=== PATIENT | female | born 1960 | race Caucasian/White ===

== ENCOUNTER 2017-11-14 16:57 | Emergency (ER) | payer BC ==
[2017-11-14 18:46] VITALS: BP 137/86
--- NOTE | 2017-11-14 20:20 | UC ---
Sandi Owens Gabriel, scribed for Cristiano Parr MD on 11/14/17 at 1932 . FLU HPI - HPI Summary HPI Summary: This patient is a 57 year old F presenting to [facility] with a chief complaint of a flu like illness since 11-13-17. The patient rates the pain 6/10 in severity. Patient reports headache, chills, sore throat, fatigue, and myalgia. Patient denies n/v/d and fever. Exposure to flu positive persons. Pt called PCP this morning and was told to come here because she is in the 48 hr window and would like to be tested - History of Current Complaint Chief Complaint: UCRespiratory Stated Complaint: sore throat Time Seen by Provider: 11/14/17 19:18 Hx Obtained From: Patient Onset/Duration: Lasting Days - 1, Still Present Severity Currently: Moderate Severity Initially: Moderate Pain Intensity: 6 Pain Scale Used: 0-10 Numeric Associated Signs & Symptoms: Positive: Myalgia, Headache. Negative: Fever, Vomiting, Diarrhea - Allergy/Home Medications Allergies/Adverse Reactions: Allergies Allergy/AdvReac Type Severity Reaction Status Date / Time No Known Allergies Allergy Verified 11/14/17 18:39 Home Medications: Home Medications Levothyroxine TAB* [Synthroid TAB*] 75 mcg PO 0800 11/14/17 [History Confirmed 11/14/17] PMH/Surg Hx/FS Hx/Imm Hx Endocrine History: Hypothyroidism Other History Of: Negative For: HIV, Hepatitis B - Surgical History Surgical History: Yes Surgery Procedure, Year, and Place: Kael Tumor L Ovary Removed - Family History Known Family History: Positive: Other - lung cancer Negative: Cardiac Disease, Hypertension, Renal Disease, Respiratory Disease, Seizure Disorder - Social History Alcohol Use: Rare Substance Use Type: None Smoking Status (MU): Never Smoked Tobacco Review of Systems Constitutional: Chills, Fatigue ENT: Sore Throat Musculoskeletal: Myalgia Neurological: Headache All Other Systems Reviewed And Are Negative: Yes Physical Exam Triage Information Reviewed: Yes Vital Signs: Initial Vital Signs Temp 98.9 F 11/14/17 18:41 Pulse 73 11/14/17 18:41 Resp 18 11/14/17 18:41 BP 137/86 11/14/17 18:41 Pulse Ox 100 11/14/17 18:41 Vital Signs Reviewed: Yes - Additional Comments General: well-appearing, no pain distress Skin: warm, color reflects adequate perfusion, dry Head: normal Eyes: EOMI, BERTHA ENT: Mild posterior pharynx erythema Neck: supple, nontender Respiratory: CTA, breath sounds present Cardiovascular: RRR Abdomen: soft, nontender Bowel: present Musculoskeletal: normal, strength/ROM intact Neurological: normal, sensory/motor intact, A&O x3 Psychological: affect/mood appropriate Flu Course/Dx - Course Course Of Treatment: Medications reviewed. BP noted and advised to follow up with PCP - Differential Dx/Diagnosis Provider Diagnoses: FLU LIKE ILLNESS. Elevated blood pressure without history of hypertension. Discharge - Discharge Plan Condition: Stable Disposition: HOME Patient Education Materials: Viral Syndrome (ED) Referrals: Linsey Salcedo MD [Primary Care Provider] - Additional Instructions: FOLLOW UP WITH YOUR DOCTOR. GET RECHECKED FOR ANY WORSENING OF YOUR CONDITION OR QUESTIONS OR CONCERNS. Your blood pressure was elevated during todays visit; please follow up with your primary care provider within a week for further evaluation. The documentation as recorded by the Sandi green Gabriel accurately reflects the service I personally performed and the decisions made by me, Cristiano Parr MD.
== END 2017-11-14 20:28 | disposition home or self-care (01) ==
LOC: UCEAST 16:57
DX: J11.1 Influenza due to unidentified influenza virus with other respiratory manifestations (principal); R03.0 Elevated blood-pressure reading, without diagnosis of hypertension; E03.9 Hypothyroidism, unspecified
CPT/HCPCS: 87502; 99211; G0463